=== PATIENT | female | born 1965 | race Caucasian/White ===

== ENCOUNTER → 2016-06-24 | Outpatient (CLI) | payer SELFPAY ==
[~2016-06-24] MED LIST: CYCL10TA45 PO; Flexeril PO; NAPR-243 PO; NAPR500T PO; PENI500T PO; PRD20T PO; TRM50T PO
--- NOTE | 2016-06-24 12:37 | Diagnostic Imaging Report ---
PROCEDURE: MRI lumbar spine. TECHNIQUE: Multiplanar, multisequence MRI of the lumbar spine was performed without contrast. INDICATION: Chronic back pain. Right leg pain. FINDINGS: There is straightening of the thoracolumbar junction curvature. The alignment of the posterior spinal line is satisfactory, however. The vertebral body heights are preserved. There is disc desiccation at the upper to mid lumbar spine levels, and there is mild disc height loss at L1/2 and minimal disc height loss at L2/3 levels. There is reactive bone marrow edema around endplates of L1/2, L2/3, and L3/4 discs. No suspicious focal marrow lesion is identified. There is mild reactive fluid in the facet joints bilaterally at L1/2 and L2/3 levels, likely degenerative related. Incidental note of a left adrenal nodule measuring 2.2 x 1.8 cm in axial dimension is seen. Etiology is uncertain. T12/L1: There is no disc herniation, and no spinal canal or foraminal stenosis. L1/2: There is a diffuse disc bulge without spinal canal or foraminal stenosis. L2/3: There is a diffuse disc bulge, asymmetric to the right with mild facet joint hypertrophy. There is no spinal canal stenosis centrally or in the lateral recesses. There is no foraminal stenosis. L3/4: There is a mild disc bulge and mild facet hypertrophy without central canal, lateral recess, or foraminal stenosis. L4/5: No significant disc herniation. No central canal or lateral recess stenosis. No foraminal narrowing. There is mild facet hypertrophy at this level. L5/S1: There is a minimal disc bulge and mild facet and ligamentous hypertrophy without central canal, lateral recess, or foraminal stenosis. There is suggestion of a synovial cyst arising from the lateral posterior aspect of the right facet joint at this level projecting in the posterior paraspinal soft tissues. IMPRESSION: 1. There are upper lumbar spine predominant disc degenerative changes and generally mild facet hypertrophy as described. There is no significant central canal, lateral recess, or foraminal stenosis seen at any level. 2. Incidental note of a 2.2 cm left adrenal nodule. In the absence of history of malignancy, this is likely an incidental adrenal adenoma. This can be evaluated with MRI of the abdomen without contrast to check for intracellular lipid contents which would confirm a lipid-rich adenoma. Dictated by: Dictated on workstation # [id number]
== END ==
LOC: RAD 09:39
PROVIDERS: ATTEND Nurse Practitioner Adult Health
DX: G89.29 Other chronic pain (principal)
CPT/HCPCS: 72148

== ENCOUNTER → 2016-11-09 | Outpatient (CLI) | payer OTHER ==
--- NOTE | 2016-11-09 15:07 | Diagnostic Imaging Report ---
EXAMINATION: Right breast ultrasound. INDICATION: Palpable lump in the medial aspect of the right breast. Asymmetry along the lateral aspect of the left breast. FINDINGS: At the 9 o'clock zone 4 cm from the nipple, there is a 0.5 x 0.6 x 0.5 cm solid nodule with internal vascularity that appears to be within a duct with adjacent mild distention of a short segment of a duct seen. There is no other significant abnormality in the 4 quadrants or retroareolar region of the right breast seen. IMPRESSION: An indeterminate hypoechoic nodule measuring 0.6 cm at the 9 o'clock zone 4 cm from the nipple is seen. An ultrasound-guided biopsy is recommended. ACR BI-RADS Category 4A: Low suspicion of malignancy. The findings and recommendations were discussed personally with the patient just before this dictation. Dictated by: Dictated on workstation # [id number]
--- NOTE | 2016-11-09 18:12 | Diagnostic Imaging Report ---
Bilateral diagnostic mammogram. INDICATION: Palpable lump in the medial aspect of the right breast. No prior studies are available for comparison. The current study was also evaluated with a Computer Aided Detection (CAD) system. FINDINGS: The breasts are composed of scattered fibroglandular densities. The palpable area marked demonstrates no underlying abnormality. There is an asymmetry along the outer aspect of the right CC projection. This is evaluated with focal compression view which demonstrates less prominent asymmetry along the outer aspect of the right breast in favor of summation artifact of parenchyma. No mammographic evidence of malignancy is seen in the left breast. IMPRESSION: Subcentimeter asymmetry along the outer aspect of the right breast is less prominent on focal compression view in favor of summation artifact of parenchyma. No abnormality is seen in the medial aspect of the right breast at the palpable area. Ultrasound evaluation pending. ACR BI-RADS Category 0: Incomplete. (Needs additional imaging evaluation). Result letter will be mailed to the patient. Note: At least 10% of breast cancer is not imaged by mammography. Dictated by: Dictated on workstation # [id number]
== END ==
LOC: RAD 13:54
PROVIDERS: ATTEND Nurse Practitioner Adult Health
DX: N63 Unspecified lump in breast (principal)
CPT/HCPCS: 76641; 77066

== ENCOUNTER → 2016-11-19 | Outpatient (CLI) | payer OTHER ==
[~2016-11-19] VITALS: Ht 165.1 cm; Wt 77.1 kg
[~2016-11-19] MED LIST changes: +LIDOCAINE 1% INJ 20 ML (XYLOCAINE) VIAL ONE
[2016-11-19 08:47] VITALS: BP 130/80
[2016-11-19] MEDS: LIDOCAINE 1% INJ 20 ML (XYLOCAINE) VIAL INJ ONE (09:08)
--- NOTE | 2016-11-19 11:39 | Diagnostic Imaging Report ---
EXAMINATION: Vacuum-assisted ultrasound-guided biopsy of breast mass right. A metallic clip placed to terrie biopsy site. INDICATION: Right breast mass. CONSENT: Informed consent was obtained from the patient. The risks, benefits, potential complications and alternatives were reviewed and all questions answered to the patient's satisfaction. FINDINGS: Ultrasound images demonstrate 9:00 subcentimeter mass at 4 cm from the nipple. PROCEDURE: After sterile preparation and draping, 1% lidocaine was utilized for local anesthesia. A vacuum-assisted biopsy device with 14-gauge needle was introduced under live ultrasound guidance into the lesion. Good needle position was documented with ultrasound images. A metallic clip was placed to terrie the site of the biopsy. A subsequent mammogram is performed and confirms the proper positioning of the clip. Multiple samples were obtained and sent to pathology. The patient tolerated the procedure well with no immediate complications. IMPRESSION: Successful ultrasound-guided biopsy of 9:00 mass. A metallic clip placed to terrie biopsy site. Dictated by: Dictated on workstation # [id number]
--- NOTE | 2016-11-19 20:27 | Diagnostic Imaging Report ---
EXAMINATION: CC and lateral views of the right breast. INDICATION: Documentation of clip position after ultrasound-guided biopsy. FINDINGS: There is satisfactory position of the clip along the outer aspect of the left breast. IMPRESSION: Clip confirmed in the lateral right breast at site of ultrasound-guided biopsy. Pathology results are pending. ACR BI-RADS Category 4A: Low suspicion of malignancy. Result letter will be mailed to the patient. Note: At least 10% of breast cancer is not imaged by mammography. Dictated by: Dictated on workstation # [id number]
== END ==
LOC: RAD 08:43
PROVIDERS: ATTEND Internal Medicine
DX: R92.8 Other abnormal and inconclusive findings on diagnostic imaging of breast (principal); N63 Unspecified lump in breast
CPT/HCPCS: 19083

== ENCOUNTER → 2020-09-27 | Outpatient (CLI) | payer MEDICAID ==
[~2020-09-27] MED LIST changes: -LIDOCAINE 1% INJ 20 ML (XYLOCAINE) VIAL ONE; +NAPR-1071 PO; -NAPR500T PO
--- NOTE | 2020-09-27 14:25 | Diagnostic Imaging Report ---
INDICATION: Palpable lump left breast. Correlation is made prior mammogram from 11/07/2016 and 11/19/2016. 2-D and 3-D bilateral diagnostic mammography was performed with CAD. Scattered fibroglandular densities are noted bilaterally. There is a postbiopsy changes right breast. BB markers are placed at the area of palpable abnormality in the upper inner left breast. No underlying abnormality is seen. No mass or malignant appearing microcalcifications are seen. Axillae are unremarkable. IMPRESSION: BI-RADS 0 No mammographic features suspicious for malignancy are identified. Even so, directed sonographic interrogation of the areas of palpable abnormality left breast is recommended and will be performed today. ACR BI-RADS Category 0: Incomplete. (Needs additional imaging evaluation). Result letter will be mailed to the patient. Note: At least 10% of breast cancer is not imaged by mammography. Dictated by: Dictated on workstation # [id number]
--- NOTE | 2020-09-27 14:38 | Diagnostic Imaging Report ---
INDICATION: Palpable lumps left breast. CORRELATION is made with diagnostic mammogram earlier the same day. Sonographic interrogation of the areas of lump in the upper and inner aspects of the left breast was performed. No solid or cystic masses are detected. No sonographic abnormality is seen. IMPRESSION: BI-RADS Category 1 No sonographic abnormality is seen. Continued close clinical and self breast exam is recommended to confirm stability of the areas of palpable abnormality. ACR BI-RADS Category 1: Negative. Result letter will be mailed to the patient. Note: At least 10% of breast cancer is not imaged by mammography. Dictated by: Dictated on workstation # [id number]
== END ==
LOC: RAD 13:01
PROVIDERS: ATTEND Nurse Practitioner Family
DX: N63.20 Unspecified lump in the left breast, unspecified quadrant (principal)
CPT/HCPCS: 76641; 76642; 77062; 77066

== ENCOUNTER 2021-12-20 13:50 | Emergency (ER) | payer MEDICAID ==
[~2021-12-20] VITALS: Ht 165.1 cm; Wt 71.6 kg
--- NOTE | 2021-12-20 14:09 | ED Chest Pain ---
General Chief Complaint: Chest Pain Stated Complaint: ABNORMAL EKG Source: patient Exam Limitations: no limitations History of Present Illness Date Seen by Provider: Dec 20, 2021 Time Seen by Provider: 13:54 Initial Comments Patient is a 56-year-old female who presents to the emergency department transferred from [facility] urgent care chief complaint of chest pressure. Patient states that she had a "sharp" pain yesterday a couple of times as she was moving around but that went between her left breast and shoulder blade that took her breath away. She felt a little lightheaded when it happened. She states her vision was a little "blurry". The pain went away and she went on about her day. She woke up this morning at about 530, 6:00 and had chest heaviness/pressure/tightness that has persisted all day. She states it seems to get worse if she moves around and walks. She is a little nauseous, she is a little short of breath. At 1 point this afternoon she became sweaty. She has no documented medical history. She is a smoker. No illicit drugs, no daily alcohol. She states her father had a history of coronary artery disease for as long as she can remember. She denies any recent illnesses, fevers, chills, cough or congestion. She was given 4 baby aspirin prior to arrival at the walk- in clinic. She currently rates the heaviness or pressure at a "6 or 7". It does not seem to radiate. Patient denies any leg swelling or calf cramping. No recent prolonged immobility. She does take ibuprofen 800 mg every 6 hours or so for "arthritis". All other review of systems reviewed and negative except as stated. 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 Associated Symptoms: diaphoresis, nausea/vomiting, shortness of breath Allergies and Home Medications Allergies Coded Allergies: NKANo Known Allergies (Verified Allergy, Unknown, 07/28/06) Patient Home Medication List Home Medication List Reviewed: Yes Cyclobenzaprine Hcl (Flexeril Tablet) 10 Mg Tablet, 10 MG PO TID Prescribed by: TAWANA PEREZ on 01/15/14 1058 Lisinopril (Lisinopril) 20 Mg Tablet, 20 MG PO DAILY Prescribed by: WINSTON ROY on 12/20/21 152 Naproxen (Naprosyn) 500 Mg Tablet, 500 MG PO BID PRN for PAIN Prescribed by: TAWANA PEREZ on 05/18/161953 Omeprazole (Omeprazole) 40 Mg Capsule.dr, 40 MG PO DAILY Prescribed by: WINSTON ROY on 12/20/21 152 Prednisone (Prednisone) 20 Mg Tab, 40 TAB PO DAILY Prescribed by: TAWANA PEREZ on 01/15/14 1058 [Flexeril] , 5 MG PO BID PRN for PAIN Prescribed by: TAWANA PEREZ on 05/18/161953 Review of Systems Review of Systems Constitutional: see HPI EENTM: No Symptoms Reported Respiratory: SOA With Exertion Cardiovascular: Chest Pain Gastrointestinal: Nausea Genitourinary: No Symptoms Reported Musculoskeletal: no symptoms reported Skin: no symptoms reported Psychiatric/Neurological: No Symptoms Reported All Other Systems Reviewed Negative Unless Noted: Yes Past Tqwrojt-Lctugs-Ggqcfd Hx Seasonal Allergies Seasonal Allergies: Yes Past Medical History [employer] History: Menopausal Arthritis Physical Exam Vital Signs Vital Signs - First Documented 12/20/21 13:52 Temp 36.7 Pulse 103 Resp 16 B/P (MAP) 188/116 (140) Pulse Ox 98 Capillary Refill : Height, Weight, BMI Height: 5'5.00" Weight: 170lbs. 0.0oz. 77.811864pk; 28.3 BMI Method:Stated General Appearance: No Apparent Distress, WD/WN HEENT: PERRL/EOMI Neck: Normal Inspection Respiratory: Lungs Clear, Normal Breath Sounds, No Accessory Muscle Use, No Respiratory Distress Cardiovascular: Regular Rate, Rhythm, Normal Peripheral Pulses, Tachycardia (112) Gastrointestinal: Normal Bowel Sounds, Non Tender, Soft Extremity: Normal Capillary Refill, Normal Inspection, Normal Range of Motion, Non Tender, No Calf Tenderness, No Pedal Edema Neurologic/Psychiatric: Alert, Oriented x3, No Motor/Sensory Deficits, Normal Mood/Affect Skin: Normal Color, Warm/Dry Progress/Results/Core Measures Results/Orders Lab Results Laboratory Tests Test 12/20/21 14:00 Range/Units White Blood Count 9.4 4.3-11.0 10^3/uL Red Blood Count 4.89 3.80-5.11 10^6/uL Hemoglobin 15.1 11.5-16.0 g/dL Hematocrit 43 35-52 % Mean Corpuscular Volume 88 80-99 fL Mean Corpuscular Hemoglobin 31 25-34 pg Mean Corpuscular Hemoglobin Concent 35 32-36 g/dL Red Cell Distribution Width 12.1 10.0-14.5 % Platelet Count 255 130-400 10^3/uL Mean Platelet Volume 10.0 9.0-12.2 fL Immature Granulocyte % (Auto) 0 % Neutrophils (%) (Auto) 55 42-75 % Lymphocytes (%) (Auto) 35 12-44 % Monocytes (%) (Auto) 6 0-12 % Eosinophils (%) (Auto) 2 0-10 % Basophils (%) (Auto) 1 0-10 % Neutrophils # (Auto) 5.2 1.8-7.8 10^3/uL Lymphocytes # (Auto) 3.3 1.0-4.0 10^3/uL Monocytes # (Auto) 0.6 0.0-1.0 10^3/uL Eosinophils # (Auto) 0.2 0.0-0.3 10^3/uL Basophils # (Auto) 0.1 0.0-0.1 10^3/uL Immature Granulocyte # (Auto) 0.0 0.0-0.1 10^3/uL Prothrombin Time 12.1 L 12.2-14.7 SEC INR Comment 0.9 0.8-1.4 Activated Partial Thromboplast Time 30 24-35 SEC Sodium Level 139 135-145 MMOL/L Potassium Level 3.6 3.6-5.0 MMOL/L Chloride Level 104 98-107 MMOL/L Carbon Dioxide Level 24 21-32 MMOL/L Anion Gap 11 5-14 MMOL/L Blood Urea Nitrogen 8 7-18 MG/DL Creatinine 0.73 0.60-1.30 MG/DL Estimat Glomerular Filtration Rate 96 BUN/Creatinine Ratio 11 Glucose Level 107 H 70-105 MG/DL Calcium Level 9.6 8.5-10.1 MG/DL Corrected Calcium 8.5-10.1 MG/DL Magnesium Level 1.7 1.6-2.4 MG/DL Total Bilirubin 0.4 0.1-1.0 MG/DL Aspartate Amino Transf (AST/SGOT) 27 5-34 U/L Alanine Aminotransferase (ALT/SGPT) 24 0-55 U/L Alkaline Phosphatase 92 40-136 U/L Myoglobin 38.0 10.0-92.0 NG/ML Troponin I < 0.028 <0.028 NG/ML Total Protein 7.5 6.4-8.2 GM/DL Albumin 4.7 H 3.2-4.5 GM/DL My Orders Orders - WINSTON ROY MD Ekg Tracing (12/20/21 14:01) Cbc With Automated Diff (12/20/21 14:03) Magnesium (12/20/21 14:03) Chest 1 View, Ap/Pa Only (12/20/21 14:03) Comprehensive Metabolic Panel (12/20/21 14:03) Myoglobin Serum (12/20/21 14:03) Protime With Inr (12/20/21 14:03) Partial Thromboplastin Time (12/20/21 14:03) O2 (12/20/21 14:03) Monitor-Rhythm Ecg Trace Only (12/20/21 14:03) Ed Iv/Invasive Line Start (12/20/21 14:03) Troponin I Deanne (12/20/21 14:03) Lidocaine 2% Viscous 15 Ml (Xylocaine Vi (12/20/21 15:00) Antacid Suspension (Mylanta Suspension (12/20/21 15:00) Sucralfate Tablet (Carafate Tablet) (12/20/21 15:00) Ketorolac Injection (Toradol Injection) (12/20/21 15:30) Medications Given in ED Vital Signs/I&O 12/20/21 12/20/21 13:52 15:50 Temp 36.7 Pulse 103 79 Resp 16 20 B/P (MAP) 188/116 (140) 149/96 Pulse Ox 98 96 Progress Progress Note : Time: 15:21 Progress Note Patient feels much better after the GI cocktail. The heavy/pressure is gone. She still has a little bit of discomfort. We will give her some Toradol to help alleviate this. We talked about blood pressure management. I am going to start her on some lisinopril. I advised her that I would be giving her follow- up information for cardiology on-call, this is Dr. Walsh today. I provided return precautions which she agreed with. I am also going to start her on some omeprazole. She verbalized understanding and agreement with the plan of care. All questions are sought and answered. Initial ECG Impression Date: Dec 20, 2021 Initial ECG Impression Time: 14:05 Initial ECG Rate: 101 Initial ECG Rhythm: S.Tach Initial ECG Intervals: Normal Initial ECG Impression: Normal Diagnostic Imaging Diagonstic Imaging: Xray Plain Films/CT/US/NM/MRI: chest Comments [facility]. [place], [place] NAME: ALVARADO BRUCE [facility] REC#: [id number] PT STATUS: REG ER : 1965 PHYSICIAN: WINSTON ROY MD ADMIT DATE: 12/20/21/ER Draft Date of Exam:12/20/21 CHEST 1 VIEW, AP/PA ONLY INDICATION: Chest heaviness and tightness since earlier in the day. Some nausea and sweating. TECHNIQUE: Single view chest . 2:33 PM. CORRELATION STUDY: 05/10/2016 FINDINGS: The heart size, mediastinal configuration and pulmonary vascularity are within normal limits. The lungs are clear with no consolidating infiltrate. There is no significant effusion or pneumothorax. IMPRESSION: 1. Negative appearing portable chest. Dictated on workstation # [id number] Dict: 12/20/21 1444 Trans: 12/20/21 1445 DO [id number] Interpreted by: NIR GILBERT DO Electronically signed by: Counseling-Symptomatic: 3-10 Minutes Follow-up with PCP to: Discuss Further Options Departure Impression Primary Impression: Chest pain Qualified Codes: R07.9 - Chest pain, unspecified Additional Impressions: GERD (gastroesophageal reflux disease) Qualified Codes: K21.9 - Gastro-esophageal reflux disease without esophagitis High blood pressure Qualified Codes: I10 - Essential (primary) hypertension Disposition: 01 HOME, SELF-CARE Condition: Improved Departure-Patient Inst. Decision time for Depature: 15:24 Referrals: [facility] [place] (PCP/Family) Primary Care Physician EVONNE WALSH JR, MD Patient Instructions: Acid Reflux and Gastroesophageal Reflux Disease in Adults, Chest Pain, LOCAL PHYSICIAN LIST Add. Discharge Instructions: Start taking the omeprazole 1 tablet daily for the next 3 weeks. This will help with heartburn/acid reflux symptoms. I have also prescribed you a medication called lisinopril for your blood pressure. 20 mg once a day. I have given you 3 weeks of each of these medications. You will need to follow- up with a primary care physician for further management of blood pressure and heartburn issues. You will need to follow-up with a heart doctor because you do have risk factors for heart disease/blockage. You should really try and stop smoking completely. If you develop a recurrence of chest pain especially pain that causes you to feel short of breath, nauseous, sweaty or radiates into your arms neck or back please come back to the emergency room for reevaluation. Scripts Lisinopril (Lisinopril) 20 Mg Tablet 20 MG PO DAILY for 21 Days, #21 TAB Prov: WINSTON ROY MD 12/20/21 Omeprazole (Omeprazole) 40 Mg Capsule.dr 40 MG PO DAILY for 21 Days, #21 CAP Prov: WINSTON ROY MD 12/20/21 Work/School Note: Work Release Form Date Seen in the Emergency Department: Dec 20, 2021 Return to Work: Dec 21, 2021 Restrictions: No Restrictions Copy Copies To 1: JOSTIN MANE KATHRYN M MD Dec 20, 2021 14:08
[2021-12-20 14:12] LABS: BASOPHILS # (AUTO) 0.1 10^3/uL (0.0-0.1); BASOPHILS % (AUTO) 1 % (0-10); EOSINOPHILS # (AUTO) 0.2 10^3/uL (0.0-0.3); EOSINOPHILS % (AUTO) 2 % (0-10); HEMATOCRIT 43 % (35-52); HEMOGLOBIN 15.1 g/dL (11.5-16.0); LYMPHOCYTES # (AUTO) 3.3 10^3/uL (1.0-4.0); LYMPHOCYTES % (AUTO) 35 % (12-44); MEAN CORPUSCULAR HEMOGLOBIN 31 pg (25-34); MEAN CORPUSCULAR HGB CONC 35 g/dL (32-36); MEAN CORPUSCULAR VOLUME 88 fL (80-99); MONOCYTES # (AUTO) 0.6 10^3/uL (0.0-1.0); MONOCYTES % (AUTO) 6 % (0-12); NEUTROPHILS # (AUTO) 5.2 10^3/uL (1.8-7.8); NEUTROPHILS % (AUTO) 55 % (42-75); PLATELET COUNT 255 10^3/uL (130-400); WHITE BLOOD COUNT 9.4 10^3/uL (4.3-11.0)
[2021-12-20 14:24] LABS: ALBUMIN 4.7 GM/DL (3.2-4.5); CHLORIDE 104 MMOL/L (98-107); POTASSIUM 3.6 MMOL/L (3.6-5.0); SODIUM 139 MMOL/L (135-145)
[2021-12-20 14:25] LABS: INR 0.9 (0.8-1.4); PROTHROMBIN TIME PATIENT 12.1 SEC (12.2-14.7)
[2021-12-20 14:26] LABS: CALCIUM 9.6 MG/DL (8.5-10.1)
[2021-12-20 14:27] LABS: GLUCOSE 107 MG/DL (70-105); TOTAL PROTEIN 7.5 GM/DL (6.4-8.2)
[2021-12-20 14:28] LABS: BILIRUBIN,TOTAL 0.4 MG/DL (0.1-1.0); CARBON DIOXIDE 24 MMOL/L (21-32)
[2021-12-20 14:30] LABS: ALKALINE PHOSPHATASE 92 U/L (40-136); CREATININE SERUM 0.73 MG/DL (0.60-1.30); GFR ESTIMATED 96
[2021-12-20 14:31] LABS: BUN/CREATININE RATIO 11
[2021-12-20 14:33] LABS: ALANINE AMINOTRANSFERASE 24 U/L (0-55); MAGNESIUM 1.7 MG/DL (1.6-2.4)
--- NOTE | 2021-12-20 14:46 | Diagnostic Imaging Report ---
INDICATION: Chest heaviness and tightness since earlier in the day. Some nausea and sweating. TECHNIQUE: Single view chest . 2:33 PM. CORRELATION STUDY: 05/10/2016 FINDINGS: The heart size, mediastinal configuration and pulmonary vascularity are within normal limits. The lungs are clear with no consolidating infiltrate. There is no significant effusion or pneumothorax. IMPRESSION: 1. Negative appearing portable chest. Dictated by: Dictated on workstation # [id number]
[2021-12-20] MEDS ORDERED: LIDOCAINE 2% VISCOUS 15 ML UDC PO ONE (15:00)
[2021-12-20] MEDS ORDERED: SUCRALFATE 1 GM (CARAFATE) TAB PO ONE (15:00)
[2021-12-20] MEDS ORDERED: ANTACID SUSP 30 ML UDC (MYLANTA) PO ONE (15:00)
[2021-12-20] MEDS ORDERED: LISI20TA26 PO (15:26)
[2021-12-20] MEDS ORDERED: OMEP40CA6 PO (15:26)
[2021-12-20] MEDS ORDERED: KETOROLAC 30 MG/ML VIAL IVP ONE (15:30)
[2021-12-20 15:50] VITALS: BP 149/96
== END 2021-12-20 15:50 | disposition home or self-care (01) ==
LOC: EDUNIT# 13:50 → ER 13:52
DX: K21.9 Gastro-esophageal reflux disease without esophagitis (principal); I10 Essential (primary) hypertension
CPT/HCPCS: 36415; 71045; 80053; 83735; 83874; 84484; 85025; 85610; 85730; 93005; 93041